=== PATIENT | female | born 1960 | race Caucasian/White ===

== ENCOUNTER → 2016-06-27 | Outpatient (CLI) | payer OTHER ==
[2016-06-27 12:42] LABS: Basophils # (A) 0.1 k/uL (0-0.2); Basophils % (A) 2 %; CHCM 32.5; Eosinophils # (A) 0.2 k/uL (0-0.7); Eosinophils % (A) 4 %; HCT 42.2 % (34.0-46.0); HDW 2.25; HGB 13.2 gm/dL (11.4-16.0); Luc # (Auto) 0.16; Luc % (Auto) 4; Lymphocytes # (A) 1.1 k/uL (1.0-4.8); Lymphocytes % (A) 23 %; MCHC 31.3 g/dL (31.0-37.0); MCV 92.6 fL (80.0-100.0); Mean Platelet Volume 7.2; Monocytes # (A) 0.2 k/uL (0-1.0); Monocytes % (A) 5 %; Neutrophils # (A) 2.9 k/uL (1.3-7.7); Neutrophils % (A) 63 %; RBC 4.56 m/uL (3.80-5.40); RDW 12.9 % (11.5-15.5); WBC 4.6 k/uL (3.8-10.6); WBC (Perox) 4.83
[2016-06-27 13:21] LABS: ALT 35 U/L (9-52); AST 32 U/L (14-36); Alkaline Phosphatase 73 U/L (38-126); Amylase 99 U/L (30-110); Anion Gap 7 mmol/L; Blood Urea Nitrogen 15 mg/dL (7-17); Calcium 9.5 mg/dL (8.4-10.2); Carbon Dioxide 31 mmol/L (22-30); Chloride 105 mmol/L (98-107); Glucose 90 mg/dL (74-99); Iron 104 ug/dL (37-170); Non-African American GFR(MDRD) >60 (>60 ml/min/1.73 sqM); Potassium 5.2 mmol/L (3.5-5.1); Sodium 143 mmol/L (137-145); Total Bilirubin 1.1 mg/dL (0.2-1.3); Total Protein 6.8 g/dL (6.3-8.2)
[2016-06-27 13:30] LABS: Total Iron Binding Capacity 385 ug/dL (265-497)
--- NOTE | 2016-06-27 13:44 | XR ---
EXAMINATION TYPE: XR cervical spine comp DATE OF EXAM: 06/27/2016 11:58 AM COMPARISON: NONE HISTORY: Pain TECHNIQUE: Four views are submitted. FINDINGS: The odontoid is intact. There are no compression deformities. The prevertebral soft tissue structur es are within normal limits. Degenerative disc disease at C5-C6 and C6-C7 with hypertrophic spurring . IMPRESSION: 1. No acute process. Multilevel moderate to severe degenerative disc disease.
[2016-06-27 14:10] LABS: Vitamin B12 227 pg/mL (239-931)
== END | disposition home or self-care (01) ==
LOC: RADXRMAIN 11:36
PROVIDERS: ATTEND Family Medicine
DX: M50.322 Other cervical disc degeneration at C5-C6 level (principal); D64.9 Anemia, unspecified; D51.0 Vitamin B12 deficiency anemia due to intrinsic factor deficiency; G89.29 Other chronic pain
CPT/HCPCS: 36415; 72050; 80053; 82150; 82607; 82728; 83540; 83550; 83690; 84443; 85025

== ENCOUNTER → 2019-06-11 | Outpatient (CLI) | payer OTHER ==
--- NOTE | 2019-06-12 07:54 | USB ---
Reason for exam: clinical finding. History: Patient is postmenopausal. Family history of breast cancer in maternal aunt at age 50. US Breast LT Technologist: Patrizia Bledsoe Left complete breast ultrasound includes all four quadrants, the retroareolar region and axilla. Finding demonstrates no cystic or solid lesion seen. No suspicious sonographic finding. These results were verbally communicated with the patient and result sheet given to the patient on 06/11/19. ASSESSMENT: Negative, BI-RAD 1 RECOMMENDATION: Routine screening mammogram of both breasts in 1 year. Manage patient on a clinical basis.
--- NOTE | 2019-06-12 07:56 | MM ---
Reason for exam: clinical finding. Last mammogram was performed 6 years and 10 months ago. History: Patient is postmenopausal. Family history of breast cancer in maternal aunt at age 50. Indicated problem(s): lump or thickening in the left breast. Physical Findings: Nurse did not find any significant physical abnormalities on exam. MG 3D Diag Mammo W/Cad HENNY Bilateral CC and MLO view(s) were taken. No prior studies available for comparison. There are scattered fibroglandular densities. No suspicious abnormality. These results were verbally communicated with the patient and result sheet given to the patient on 06/11/19. ASSESSMENT: Negative, BI-RAD 1 RECOMMENDATION: Routine screening mammogram of both breasts in 1 year. Ultrasound is being performed the same day for a left axillary palpable mass.
== END | disposition home or self-care (01) ==
LOC: RADMAMWWP 08:32
PROVIDERS: ATTEND Family Medicine
DX: N63.20 Unspecified lump in the left breast, unspecified quadrant (principal); N63.32 Unspecified lump in axillary tail of the left breast; Z80.3 Family history of malignant neoplasm of breast; Z78.0 Asymptomatic menopausal state
CPT/HCPCS: 77062; 77066

== ENCOUNTER 2021-04-08 09:03 | Emergency (ER) | payer OTHER ==
[2021-04-08 09:07] VITALS: PULSE 64; RESP 18; TEMP 98.2
[2021-04-08] MEDS ORDERED: KETOROLAC 15 MG/ML 1 ML VIAL IM STA (09:37)
--- NOTE | 2021-04-08 10:55 | XR ---
EXAMINATION TYPE: XR Hip LT and AP Pelvis DATE OF EXAM: 04/08/2021 COMPARISON: None available HISTORY: Slipped and fell TECHNIQUE: A single AP view of the pelvis is obtained. Two views of the left hip are obtained. FINDINGS: Osteopenia. Bilateral femoral greater trochanteric enthesophytes. Mild symphysitis pubis. Tiny osteop hytosis of the left hip joint. Unremarkable hip joints otherwise. No definite acute fracture/dislocation evident in the pelvis or the left hip. No focal lytic or scler otic lesion. IMPRESSION: There is no acute fracture or dislocation in the pelvis or the left hip. Incidental find ings as described above.
--- NOTE | 2021-04-08 11:33 | ED ---
General Adult HPI - General Chief complaint: Fall Stated complaint: Fall, hip pain Time Seen by Provider: 04/08/21 09:05 Source: patient, RN notes reviewed, old records reviewed Mode of arrival: ambulatory Limitations: no limitations - History of Present Illness Initial comments: This is an 60-year-old female presents emergency department stating that she slipped and fell on some ice this morning she landed on her left buttocks. Patient states that area and it still causes pain. Patient states she was able to get up and really put it hurt. Patient denies any neck pain. Patient denies any numbness weakness. Patient states she bumped her head slightly but she has no headache she did not lose consciousness and she was not dazed. Patient also states she is not on any blood thinners. Patient denies any other injury at this time. - Related Data Home Medications Medication Instructions Recorded Confirmed Calcium Carbonate [Calcium] 600 mg PO DAILY 04/08/21 04/08/21 Cholecalciferol [Vitamin D3 (25 25 mcg PO DAILY 04/08/21 04/08/21 Mcg = 1000 Iu)] Zinc 50 mg PO DAILY 04/08/21 04/08/21 Previous Rx's Medication Instructions Recorded Ibuprofen [Motrin] 600 mg PO Q6HR PRN #20 tab 04/08/21 Allergies Allergy/AdvReac Type Severity Reaction Status Date / Time No Known Allergies Allergy Verified 04/08/21 10:10 Review of Systems ROS Statement: Those systems with pertinent positive or pertinent negative responses have been documented in the HPI. ROS Other: All systems not noted in ROS Statement are negative. Past Medical History Additional Past Medical History / Comment(s): gastric bypass, anemia History of Any Multi-Drug Resistant Organisms: None Reported Past Surgical History: Bariatric Surgery Past Psychological History: No Psychological Hx Reported Smoking Status: Never smoker Past Alcohol Use History: None Reported Past Drug Use History: None Reported General Exam - General Exam Comments Initial Comments: GENERAL: Patient is well-developed and well-nourished. Patient is nontoxic and well- hydrated and is in mild distress. ENT: Neck is soft and supple. No significant lymphadenopathy is noted. Oropharynx is clear. Moist mucous membranes. Neck has full range of motion without eliciting any pain. EYES: The sclera were anicteric and conjunctiva were pink and moist. Extraocular movements were intact and pupils were equal round and reactive to light. Eyelids were unremarkable. PULMONARY: Unlabored respirations. Good breath sounds bilaterally. No audible rales rhonchi or wheezing was noted. CARDIOVASCULAR: There is a regular rate and rhythm without any murmurs gallops or rubs. ABDOMEN: Soft and nontender with normal bowel sounds. SKIN: Skin is clear with no lesions or rashes and otherwise unremarkable. NEUROLOGIC: Patient is alert and oriented x3. Cranial nerves II through XII are grossly intact. Motor and sensory are also intact. Normal speech, volume and content. Symmetrical smile. MUSCULOSKELETAL: Normal extremities with adequate strength and full range of motion. No lower extremity swelling or edema. No calf tenderness. Patient has some tenderness at the sacroiliac joint and the iliac crest area. LYMPHATICS: No significant lymphadenopathy is noted PSYCHIATRIC: Normal psychiatric evaluation. Limitations: no limitations Course Vital Signs 04/08/21 04/08/21 09:05 09:46 Temperature 98.2 F Pulse Rate 64 Respiratory 18 Rate Blood Pressure 126/74 119/79 O2 Sat by Pulse 98 Oximetry Medical Decision Making - Medical Decision Making X-ray of the hip and pelvis show no acute abnormality. There is a questionable area on the iliac crest so CAT scan will be ordered. CAT scan of the pelvis shows no acute abnormality. Patient received Toradol the emergency department. Disposition Clinical Impression: Fall, Contusion of buttock Disposition: HOME SELF-CARE Instructions (If sedation given, give patient instructions): Fall Prevention (ED) Prescriptions: Ibuprofen [Motrin] 600 mg PO Q6HR PRN #20 tab PRN Reason: For pain Is patient prescribed a controlled substance at d/c from ED?: No Referrals: Farideh Higgins DO [Primary Care Provider] - 1-2 days Time of Disposition: 12:01
--- NOTE | 2021-04-08 11:49 | CT ---
EXAMINATION TYPE: CT pelvis wo con DATE OF EXAM: 04/08/2021 COMPARISON: X-ray performed earlier same day HISTORY: Fall 2 days ago. Left hip pain. CT DLP: 487 mGycm Automated exposure control for dose reduction was used. TECHNIQUE: Multiplanar CT scan of the pelvic bones without IV contrast administration. FINDINGS: No definite acute pelvic bone or hip fracture identified. Mild degenerative changes of the left hip j oint with tiny osteophytosis. Milder osteophytosis of the right acetabulum. Degenerative changes of t he symphysis pubis. Mild degenerative changes of the left sacroiliac joint. Bilateral femoral greater trochanteric enthesophytes. Bilateral L4-5 facet osteoarthropathy. Previous hysterectomy. No gross adnexal mass. No pelvic hematoma or collection. Scattered arterial atheroscle rotic calcifications. Left L4-5 neural foraminal stenosis compressing the left L4 nerve root. IMPRESSION: No definite acute pelvic or hip bone fracture identified. Incidental findings as detailed above.
[2021-04-08 12:26] VITALS: BP 129/98
== END 2021-04-08 12:15 | disposition home or self-care (01) ==
LOC: EC 09:03
DX: S30.0XXA Contusion of lower back and pelvis, initial encounter (principal); W01.0XXA Fall on same level from slipping, tripping and stumbling without subsequent striking against object, initial encounter
CPT/HCPCS: 99284; 96372; 73502; 72192; J1885

== ENCOUNTER 2021-04-12 12:42 | Emergency (ER) | payer OTHER ==
[2021-04-12 12:59] VITALS: BP 116/67; PULSE 65; RESP 18; TEMP 97
[2021-04-12] MEDS ORDERED: HYDROmorphone 1 MG/ML 1 ML SYRINGE IM STA (13:33)
--- NOTE | 2021-04-12 13:37 | ED ---
General Adult HPI - General Chief complaint: Recheck/Abnormal Lab/Rx Stated complaint: Revisit/fall/pain Time Seen by Provider: 04/12/21 13:19 Source: patient, RN notes reviewed Mode of arrival: ambulatory Limitations: no limitations - History of Present Illness Initial comments: Patient is a pleasant 60-year-old female presenting to the emergency Department with back discomfort. Patient originally states that her hip hurts however further explain this to be the lower back. Patient states she did have a fall 1 week ago. Patient was here and had x-rays of her hip. Patient questions if she is determining that the area is the hip when it actually is her lower back. Patient states discomfort does radiate towards the hip and upper leg. Patient denies any weakness. No loss of control of bowel or bladder. No loss of sensation. - Related Data Home Medications Medication Instructions Recorded Confirmed Calcium Carbonate [Calcium] 600 mg PO DAILY 04/08/21 04/08/21 Cholecalciferol [Vitamin D3 (25 25 mcg PO DAILY 04/08/21 04/08/21 Mcg = 1000 Iu)] Zinc 50 mg PO DAILY 04/08/21 04/08/21 Previous Rx's Medication Instructions Recorded Ibuprofen [Motrin] 600 mg PO Q6HR PRN #20 tab 04/08/21 Cyclobenzaprine [Flexeril] 10 mg PO TID PRN #12 tablet 04/12/21 predniSONE [Deltasone] 20 mg PO BID #10 tab 04/12/21 Allergies Allergy/AdvReac Type Severity Reaction Status Date / Time No Known Allergies Allergy Verified 04/08/21 10:10 Review of Systems ROS Statement: Those systems with pertinent positive or pertinent negative responses have been documented in the HPI. ROS Other: All systems not noted in ROS Statement are negative. Constitutional: Denies: fever Eyes: Denies: eye pain ENT: Denies: ear pain Respiratory: Denies: cough Cardiovascular: Denies: chest pain Endocrine: Denies: fatigue Gastrointestinal: Denies: abdominal pain Genitourinary: Denies: dysuria Musculoskeletal: Reports: as per HPI, back pain Neurological: Denies: weakness Past Medical History Additional Past Medical History / Comment(s): gastric bypass, anemia History of Any Multi-Drug Resistant Organisms: None Reported Past Surgical History: Bariatric Surgery Past Psychological History: No Psychological Hx Reported Smoking Status: Never smoker Past Alcohol Use History: None Reported Past Drug Use History: None Reported General Exam Limitations: no limitations General appearance: alert, in no apparent distress Head exam: Present: normocephalic Eye exam: Present: normal appearance Neck exam: Present: normal inspection. Absent: tenderness Respiratory exam: Present: normal lung sounds bilaterally Cardiovascular Exam: Present: regular rate, normal rhythm Expanded Peripheral pulses: 2+: Posterior Tibialis (R), Posterior Tibialis (L) GI/Abdominal exam: Present: soft. Absent: distended, tenderness, guarding, rebound, rigid Extremities exam: Present: normal inspection, full ROM. Absent: tenderness Back exam: Present: vertebral tenderness (Mild tenderness lower lumbar spine) Neurological exam: Present: alert. Absent: motor sensory deficit Expanded Sensory exam: Lower Extremity Light Touch: Normal Motor strength exam: RLE: 5, LLE: 5 Psychiatric exam: Present: normal affect, normal mood Skin exam: Present: normal color Course Vital Signs 04/12/21 12:56 Temperature 97.0 F L Pulse Rate 65 Respiratory 18 Rate Blood Pressure 116/67 O2 Sat by Pulse 99 Oximetry Medical Decision Making - Medical Decision Making Patient reevaluated and updated - Radiology Data Radiology results: image reviewed (Lumbar spine x-ray shows multilevel degeneration. Grade 1 anterolisthesis L4-L5.) Disposition Clinical Impression: Low back pain Disposition: HOME SELF-CARE Condition: Stable Instructions (If sedation given, give patient instructions): Back Pain (ED) Additional Instructions: Please follow-up primary care physician in the next couple days for recheck. If symptoms continue and sitter follow-up with orthopedics or further evaluation or MRI. Return for increased pain, weakness, loss of control of bowel or bladder, worsening or changing symptoms, fevers, or other concerns. Prescription for muscle relaxers and steroids has been sent to pharmacy. Prescriptions: predniSONE [Deltasone] 20 mg PO BID #10 tab Cyclobenzaprine [Flexeril] 10 mg PO TID PRN #12 tablet PRN Reason: Pain Is patient prescribed a controlled substance at d/c from ED?: No Referrals: Farideh Higgins DO [Primary Care Provider] - 1-2 days Time of Disposition: 14:52
--- NOTE | 2021-04-12 14:33 | XR ---
EXAM TYPE: LUMBAR SPINE X RAY SERIES COMPARISON: NONE HISTORY: Pain TECHNIQUE: 4 views are submitted. FINDINGS: There is degenerative disc disease involving the thoracolumbar junction. Severe facet arthropathy at multiple levels with multilevel degenerative disc disease. Slight anterolisthesis L4 on L5. No compre ssion deformities. Pedicles intact. Mild diffuse osteopenia. Surgical changes in the abdomen noted. IMPRESSION: 1. Multilevel degenerative disc disease and facet arthropathy. Grade 1 anterolisthesis L4 on L5
== END 2021-04-12 15:02 | disposition home or self-care (01) ==
LOC: EC 12:42
DX: M54.59 Other low back pain (principal); Z98.84 Bariatric surgery status
CPT/HCPCS: 99283; 96372; 72110; J1170

== ENCOUNTER → 2022-12-14 | Outpatient (CLI) | payer OTHER ==
--- NOTE | 2022-12-14 18:35 | BD ---
EXAMINATION TYPE: Axial Bone Density DATE OF EXAM: 12/14/2022 CLINICAL HISTORY: 62 years old Female. ICD-10 CODE: Z78.0 OSTEOPOR SCREEN Height: 69 Weight: 184 FRAX RISK QUESTIONS: History of Fracture in Adulthood: yes wrist rt 2002 Secondary Osteoporosis: no RISK FACTORS HISTORY OF: Family History of Osteoporosis: no Active: yes History of wrist fracture yes rt When: 2007 Diet low in dairy products/other sources of calcium: no Postmenopausal woman: yes Lost more than 2 inches in height since high school: no Frequent falls: no Poor Health: yes MEDICATIONS: Additional Medications: no EXAM MEASUREMENTS: Bone mineral densitometry was performed using the [employer] Swing System. Bone mineral density as measured about the Lumbar spine is: ----- L1-L4(G/cm2): 1.078 T Score Values are as follows: ----- L1: -2.6 ----- L2: -1.8 ----- L3: 0.3 ----- L4: 0.3 ----- L1-L4: -0.8 Z Score Values are as follows: ----- L1: -1.9 ----- L2: -1.1 ----- L3: 0.9 ----- L4: 1.0 ----- L1-L4: -0.2 Bone mineral density has: Decreased -10.1% since study of: 08/23/2012 Bone mineral density about the R hip (g/cm2): 0.714 Bone mineral density about the L hip (g/cm2): 0.749 T Score values are as follows: -----R Neck: -2.2 -----L Neck: -2.3 -----R Total: -2.3 -----L Total: -2.1 Z Score values are as follows: -----R Neck: -1.3 -----L Neck: -1.4 -----R Total: -1.8 -----L Total: -1.5 Bone mineral density has: Decreased -6.4% since study of: 08/23/2012 FRAX%s: The graph provided illustrates a 18.6% chance for a major osteoporotic fx and a 3.2% chance f or the hips probability for fx in 10 years time. IMPRESSION: Osteopenia (T Score between -2.5 and -1). There is slightly increased risk of fracture and the patient may be considered for treatment. Re-Screen 2-5 years. NOTE: T-SCORE=SD OF THE YOUNG ADULT MEAN.
--- NOTE | 2022-12-15 08:43 | MM ---
Reason for Exam: Screening (asymptomatic). Last mammogram was performed 3 year(s) and 6 month(s) ago. Patient History: Menarche at age 14. First Full-Term at age 27. Hysterectomy at age 41. Postmenopausal. Maternal aunt had breast cancer, age 50. Risk Values: Chely 5 year model risk: 1.6%. NCI Lifetime model risk: 7.9%. Prior Study Comparison: 05/04/2009 Screening Mammogram, [facility]. 08/23/2012 Bilateral Diagnostic Mammogram, [facility]. 06/11/2019 Bilateral Diagnostic Mammogram, [facility]. Tissue Density: The breast tissue is almost entirely fat. Findings: Analyzed By CAD. There is no suspicious group of microcalcifications or new suspicious mass. Overall Assessment: Negative, BI-RAD 1 Management: Screening Mammogram of both breasts in [address] [facility] will attempt to contact patient to return for supplemental views and ultrasound if indicated. Patient should continue monthly self-breast exams. A clinical breast exam by your physician is recommended on an annual basis. This exam should not preclude additional follow-up of suspicious palpable abnormalities. Note on Chely scores and lifetime risk: 1. A Chely score greater than 3% is considered moderate risk. If this is the case, consider specialist referral to assess eligibility for a risk reducing agent. 2. If overall lifetime risk for the development of breast cancer is 20% or higher, the patient may qualify for future screening with alternating mammogram and breast MRI. Electronically signed and approved by: Deonte Conn DO
== END | disposition home or self-care (01) ==
LOC: RADBDWWP 15:22
PROVIDERS: ATTEND Family Medicine
DX: Z12.31 Encounter for screening mammogram for malignant neoplasm of breast (principal); M81.0 Age-related osteoporosis without current pathological fracture; M85.89 Other specified disorders of bone density and structure, multiple sites; Z80.3 Family history of malignant neoplasm of breast; Z78.0 Asymptomatic menopausal state
CPT/HCPCS: 77067; 77080

== ENCOUNTER → 2023-05-15 | Outpatient (CLI) | payer OTHER ==
--- NOTE | 2023-05-17 09:10 | MR ---
EXAMINATION TYPE: MR cervical spine wo con DATE OF EXAM: 05/15/2023 COMPARISON: None HISTORY: Neck pain into both arms/fingers, Left side is worse CONTRAST: Performed utilizing 0 mL intravenous Gadavist gadolinium contrast. TECHNIQUE: Multiplanar multiecho imaging on a 3.0 Karen magnet is performed through the cervical spin e. FINDINGS: The craniovertebral junction is normal. Vertebral body alignment is normal. C7-T1: Broad-based paracentral broad-based disc bulge is present with moderate anterior thecal sac c ompression. No AP spinal canal stenosis is present. No cord contact is evident. Neural foramen are pa tent.. C6-7: Minimal disc bulge has anterior thecal sac flattening. There is a small central protrusion with mild anterior thecal sac compression. No AP spinal canal stenosis. Neural foramen are patent. No cor d contact is evident. C5-6: Minimal central disc bulge is present with anterior thecal sac contact. No AP spinal canal sten osis is present. Neural foramen are patent. No cord contact evident. C4-5: Mild central disc bulge is present with anterior thecal sac contact. No cord contact is evident . No spinal canal stenosis. Neural foramen are patent. C3-4: No focal disc herniation or significant disc bulge is evident. No spinal canal stenosis or alf ral foraminal stenosis is present. C2-3: No focal disc herniation or significant disc bulge is evident. No spinal canal stenosis or alf ral foraminal stenosis is present. IMPRESSION: 1. Broad-based left paracentral disc bulging at C7-T1 without cord contact or spinal canal stenosis. 2. Minimal disc bulging with a small central protrusion C6-7. No spinal canal stenosis is evident.
== END | disposition home or self-care (01) ==
LOC: RADMRIMAIN 15:21
PROVIDERS: ATTEND Family Medicine
DX: M50.123 Cervical disc disorder at C6-C7 level with radiculopathy (principal); M50.323 Other cervical disc degeneration at C6-C7 level
CPT/HCPCS: 72141